=== PATIENT | male | born 1990 | race Caucasian/White ===

== ENCOUNTER 2018-04-19 23:17 | Emergency (ER) | payer SELFPAY ==
[~2018-04-19] VITALS: Ht 182.9 cm; Wt 104.5 kg
[2018-04-20 01:25] VITALS: BP 128/80
== END 2018-04-20 01:27 | disposition home or self-care (01) ==
LOC: EMS 23:18
DX: S62.302A Unspecified fracture of third metacarpal bone, right hand, initial encounter for closed fracture (principal); W18.30XA Fall on same level, unspecified, initial encounter; Y93.89 Activity, other specified; Y92.89 Other specified places as the place of occurrence of the external cause; Y99.8 Other external cause status
CPT/HCPCS: 99284